=== PATIENT | male | born 1930 | race Caucasian/White ===

== ENCOUNTER 2018-05-11 12:58 | Emergency (ER) | payer MEDICARE ==
[2018-05-11 14:17] LABS: ANION GAP 13.4
--- NOTE | 2018-05-12 11:24 | EDM.PDOC ---
Scribed by Briana Moreau 05/11/18 [id number] for David Mares MD ED HPI GENERAL MEDICAL PROBLEM - General Chief Complaint: Respiratory Problem Stated Complaint: TROUBLE BREATHING, POOR BALANCE Time Seen by Provider: 05/11/18 13:17 Source of Information: Reports: Patient, RN, RN Notes Reviewed History Limitations: Reports: No Limitations - History of Present Illness INITIAL COMMENTS - FREE TEXT/NARRATIVE: Patient presents to ER with complaint of cough, intermittent episodes of shortness of breath, generalized weakness, frequent falls, urinary flow difficulties, and anxiety. Patient lives alone in his own home next door to his daughter. He denies chest pain, fever, chills, nausea, vomiting or edema. He states he has a cough which is sometimes dry and sometimes productive. He has history of vertigo but does not feel that the current dizziness is the same as his past vertigo symptoms. He denies orthostatic dizziness. Onset: Gradual Duration: Constant Location: Reports: Generalized Severity: Moderate Improves with: Reports: None Worsens with: Reports: None Associated Symptoms: Reports: No Other Symptoms - Related Data Allergies Allergy/AdvReac Type Severity Reaction Status Date / Time No Known Allergies Allergy Verified 07/11/14 07:33 Home Meds: Home Meds Aspirin [Halfprin] 81 mg PO DAILY 07/11/14 [History] Citalopram Hydrobromide [Citalopram HBr] 20 mg PO DAILY 07/11/14 [History] Metoprolol Succinate 25 mg PO DAILY 07/11/14 [History] Simvastatin [Zocor] 40 mg PO DAILY 07/11/14 [History] Terazosin [Hytrin] 2 mg PO DAILY 07/11/14 [History] Tiotropium [Spiriva HandiHaler] 1 puff INH DAILY 07/11/14 [History] Past Medical History HEENT History: Reports: Hard of Hearing, Impaired Vision Cardiovascular History: Reports: High Cholesterol, Hypertension Respiratory History: Reports: COPD Genitourinary History: Reports: BPH, Prostate Disorder Musculoskeletal History: Reports: Osteoarthritis Psychiatric History: Reports: Anxiety, Panic Attack Social & Family History - Family History Family Medical History: Noncontributory - Tobacco Use Smoking Status *Q: Former Smoker - Living Situation & Occupation Living situation: Reports: Single, Alone Occupation: Retired ED ROS GENERAL - Review of Systems Review Of Systems: ROS reveals no pertinent complaints other than HPI. ED EXAM, GENERAL - Physical Exam Exam: See Below Exam Limited By: No Limitations General Appearance: Alert, WD/WN, No Apparent Distress, Anxious Eye Exam: Bilateral Eye: EOMI, Normal Inspection, PERRL Ears: Normal External Exam, Normal Canal, Hearing Grossly Normal, Normal TMs Nose: Normal Inspection, Normal Mucosa, No Blood Throat/Mouth: Normal Inspection, Normal Lips, Normal Teeth, Normal Gums, Normal Oropharynx, Normal Voice, No Airway Compromise Head: Atraumatic, Normocephalic Neck: Normal Inspection, Supple, Non-Tender, Full Range of Motion Respiratory/Chest: No Respiratory Distress, No Accessory Muscle Use, Decreased Breath Sounds, Crackles. No: Rales, Rhonchi, Wheezing Cardiovascular: Regular Rate, Rhythm, No Edema GI/Abdominal: Normal Bowel Sounds, Soft, Non-Tender, No Distention (Male) Exam: Deferred Rectal (Males) Exam: Deferred Back Exam: Normal Inspection Extremities: Normal Inspection, Normal Range of Motion, Non-Tender, Normal Capillary Refill, No Pedal Edema Neurological: Alert, Oriented, CN II-XII Intact, Normal Cognition, No Motor/ Sensory Deficits Psychiatric: Anxious Skin Exam: Warm, Dry, Intact, Normal Color, No Rash EKG INTERPRETATION EKG Date: 05/11/18 Time: 13:55 Rhythm: Other (Sinus rhythm) Rate (Beats/Min): 74 Leigh: Normal P-Wave: Present QRS: Other (PVC, left anterior vesicuiular block, RBBB and probable left atrial enlargement) ST-T: Depressed (ST segment depression inferior lateral leads) QT: Normal Comparison: Change From Previous EKG (compared to 07/11/14 EKG) Course - Vital Signs Last Recorded V/S: Last Vital Signs Temp 37.2 C 05/11/18 13:17 Pulse 79 05/11/18 13:17 Resp 22 H 05/11/18 13:17 BP 119/62 05/11/18 13:17 Pulse Ox 94 L 05/11/18 13:17 Orthostatic Blood Pressure [ 104/53 Standing] Orthostatic Blood Pressure [ 92/55 Sitting] Orthostatic Blood Pressure [ 107/56 Supine] - Orders/Labs/Meds Orders: Active Orders 24 hr Category Date Time Status EKG 12 Lead [EKG Documentation Completion] [RC] STAT Care 05/11/18 13:40 Active Orthostatic Vital Signs [RC] ASDIRECTED Care 05/11/18 13:51 Active Labs: Laboratory Tests 05/11/18 05/11/18 05/11/18 Range/Units 13:49 13:49 14:58 WBC 11.4 H (5.0-10.0) 10^3/uL RBC 3.41 L (4.6-6.2) 10^6/uL Hgb 11.6 L D (14.0-18.0) g/dL Hct 35.2 L (40.0-54.0) % MCV 103.2 H (80-100) fL MCH 34.0 (27.0-34.0) pg MCHC 33.0 (33.0-35.0) g/dL Plt Count 135 L (150-450) 10^3/uL Neut % (Auto) 80.5 H (42.2-75.2) % Lymph % (Auto) 5.5 L (20.5-50.1) % [place] % (Auto) 13.6 H (2-8) % Eos % (Auto) 0.1 L (1.0-3.0) % Baso % (Auto) 0.3 (0.0-1.0) % Sodium 135 (135-145) mmol/L Potassium 4.4 (3.6-5.0) mmol/L Chloride 102 (101-111) mmol/L Carbon Dioxide 24.0 (21.0-31.0) mmol/L Anion Gap 13.4 BUN 25 H (7-18) mg/dL Creatinine 1.3 (0.6-1.3) mg/dL Est Cr Clr Drug Dosing 41.83 mL/min Estimated GFR (MDRD) 52 BUN/Creatinine Ratio 19.23 Glucose 137 H (74-105) mg/dL Calcium 8.2 L (8.4-10.2) mg/dl Total Bilirubin 0.9 (0.2-1.0) mg/dL AST 34 (10-42) IU/L ALT 15 (10-60) IU/L Alkaline Phosphatase 46 (42-121) IU/L B-Natriuretic Peptide 1160 H (0-100) pg/ml Total Protein 6.7 (6.7-8.2) g/dl Albumin 3.5 (3.2-5.5) g/dl Globulin 3.2 Albumin/Globulin Ratio 1.09 Urine Color Yellow (YELLOW) Urine Appearance Slightly cloudy (CLEAR) Urine pH 5.5 (5.0-9.0) Ur Specific [place] >= 1.030 (1.005-1.030) Urine Protein Negative (NEGATIVE) Urine Glucose (UA) Negative (NEGATIVE) Urine Ketones Trace H (NEGATIVE) Urine Occult Blood Small H (NEGATIVE) Urine Nitrite Negative (NEGATIVE) Urine Bilirubin Negative (NEGATIVE) Urine Urobilinogen 0.2 (0.2-1.0) mg/dL Ur Leukocyte Esterase Negative (NEGATIVE) Urine RBC 5-10 H /HPF Urine WBC 0-5 (0-5/HPF) /HPF Ur Epithelial Cells Occasional /HPF Urine Bacteria Moderate H (0-FEW/HPF) /HPF Urine Mucus Many H /LPF Departure - Departure Time of Disposition: 15:22 Disposition: Home, Self-Care 01 Condition: Fair Clinical Impression: Anxiety, Insomnia, BPH (benign prostatic hyperplasia) - Discharge Information Instructions: Insomnia, Living With Anxiety Referrals: Ale Del Valle PA [Primary Care Provider] - Forms: ED Department Discharge Additional Instructions: RX: Restoril 15mg. Follow up with Ale Del Valle this week for recheck. - My Orders Last 24 Hours: My Active Orders 05/11/18 13:40 EKG 12 Lead [EKG Documentation Completion] [RC] STAT 05/11/18 13:51 Orthostatic Vital Signs [RC] ASDIRECTED - Assessment/Plan Last 24 Hours: My Active Orders 05/11/18 13:40 EKG 12 Lead [EKG Documentation Completion] [RC] STAT 05/11/18 13:51 Orthostatic Vital Signs [RC] ASDIRECTED I have read and agree with the documentation that has been completed regarding this visit. By signing this record, I attest that the documentation was completed in my physical presence and is an accurate record of the encounter.
== END 2018-05-11 15:33 | disposition home or self-care (01) ==
LOC: DL.ED 12:58
DX: G47.00 Insomnia, unspecified (principal); F41.9 Anxiety disorder, unspecified; N40.1 Benign prostatic hyperplasia with lower urinary tract symptoms; R39.198 Other difficulties with micturition; Z79.82 Long term (current) use of aspirin; Z79.899 Other long term (current) drug therapy; I10 Essential (primary) hypertension; Z87.891 Personal history of nicotine dependence
CPT/HCPCS: 36415; 71045; 80053; 81001; 83880; 85025; 93005; 99285